=== PATIENT | female | born 1985 | race African-American/Black ===

== ENCOUNTER 2018-06-17 09:00 | Observation (INO) | payer MEDICAID ==
[~2018-06-17] VITALS: Ht 162.6 cm; Wt 89.4 kg
[~2018-06-17 09:00] MED LIST: ALBUTEROL
[2018-06-17] MEDS ORDERED: LACTATED RINGERS 1,000 ML IV SCH (10:00)
[2018-06-17] MEDS ORDERED: ONDANSETRON HCL 4MG/2ML INJ IV NR (10:00)
== END 2018-06-17 11:00 | disposition home or self-care (01) ==
LOC: 8 EST LDRP 09:00
PROVIDERS: ADMIT Obstetrics & Gynecology; ATTEND Obstetrics & Gynecology
DX: O62.9 Abnormality of forces of labor, unspecified (principal); O21.2 Late vomiting of pregnancy; Z3A.38 38 weeks gestation of pregnancy
CPT/HCPCS: 96374; 99281; G0378; J2405; 96360

== ENCOUNTER 2018-06-21 09:05 | Inpatient (IN) | payer MEDICAID ==
[~2018-06-21] VITALS: Ht 162.6 cm; Wt 92.1 kg
[2018-06-21] MEDS ORDERED: DEXT 5%/LACTATED RINGERS 1,000 ML IV SCH (10:00)
[2018-06-21] MEDS ORDERED: ONDANSETRON HCL 4MG/2ML INJ IV SCH (10:00)
[2018-06-21 10:29] LABS: BASOPHILS % 0.3 % (0.0-2.0); EOSINOPHILS % 0.2 % (0.0-5.0); HEMATOCRIT. 31.1 % (36.0-48.0); LYMPHOCYTES % 8.2 % (20.0-50.0); MEAN CORPUSCULAR HEMOGLOBIN 29.5 pg (28.0-32.0); MEAN CORPUSCULAR VOLUME 91.6 fL (81.0-99.0); MEAN PLATELET VOLUME 10.7 fl (7.4-10.4); MONOCYTES % 5.3 % (2.0-8.0); PLATELET 212 x1000/uL (130-400); RED CELL DISTRIBUTION WIDTH 12.7 % (11.6-14.6)
[2018-06-21] MEDS ORDERED: DEXT 5%/LR + PITOCIN 20UNITS/L 1,000 ML IV SCH ×2 (10:42→23:20)
[2018-06-21] MEDS ORDERED: CARBOPROST TROMETHAMINE 250 MCG/ML AMPUL IM PRN (10:45)
[2018-06-21] MEDS ORDERED: LIDOCAINE HCL 1% 20ML VIAL (Pyxis) INJ INFIL SCH (10:45)
[2018-06-21] MEDS ORDERED: BUTORPHANOL TARTRATE 2 MG/ML VIAL IV PRN (10:45)
[2018-06-21] MEDS ORDERED: NALOXONE HCL 0.4 MG/ML 1ML VIAL IM PRN (10:45)
[2018-06-21] MEDS ORDERED: METHYLERGONOVINE MALEATE 0.2 MG/ML IM PRN (10:45)
[2018-06-21] MEDS ORDERED: MISOPROSTOL 100MCG TABLET VG SCH (11:00)
[2018-06-21 12:26] LABS: *COCAINE SCREEN URINE NEGATIVE (NEGATIVE)
[2018-06-21 12:30] LABS: *AMPHETAMINES SCREEN URINE NEGATIVE (NEGATIVE); *BARBITURATES SCREEN URINE NEGATIVE (NEGATIVE); *BENZODIAZEPINES SCREEN URINE NEGATIVE (NEGATIVE); METHADONE URINE SCREEN NEGATIVE (NEGATIVE); OPIATES URINE SCREEN NEGATIVE (NEGATIVE); PHENCYCLIDINE URINE SCREEN NEGATIVE (NEGATIVE)
[2018-06-21 12:31] LABS: CANNABINOID URINE SCREEN NEGATIVE (NEGATIVE)
[2018-06-21 12:32] LABS: PARTIAL THROMBOPLASTIN TIME 27.4 sec (23.4-31.0); PROTHROMBIN TIME 9.7 sec (9.1-11.1)
[2018-06-21 12:44] LABS: CLARITY URINE CLEAR (CLEAR); COLOR URINE YELLOW (YELLOW); KETONES URINE NEGATIVE (NEGATIVE); LEUKOCYTE ESTERASE URINE 1+ (NEGATIVE); NITRITE URINE NEGATIVE (NEGATIVE); OCCULT BLOOD URINE NEGATIVE (NEGATIVE); PH URINE 8.5 (4.5-8.0); PROTEIN URINE NEGATIVE (NEGATIVE); SPECIFIC GRAVITY URINE 1.019 (1.005-1.030); UROBILINOGEN URINE 0.2 E.U./dL (0.2-1.0)
[2018-06-21 14:16] LABS: HEPATITIS B SURFACE ANTIGEN NEGATIVE
[2018-06-21] MEDS: LACTATED RINGERS 1,000 ML IV SCH ×2 (14:39→17:33)
[2018-06-21] MEDS ORDERED: ROPIVACAINE HCL/PF 0.2% (2MG/ML) EPI 200ML EPI NR (17:00)
[2018-06-21] MEDS ORDERED: FENTANYL CITRATE/PF 50MCG/ML 2ML VIAL ONE ×2 (17:08→21:07)
[2018-06-21] MEDS ORDERED: BUPIVACAINE HCL/PF 0.25% (2.5MG/ML) 10ML ONE ×3 (17:08→21:23)
[2018-06-21] MEDS ORDERED: SODIUM CHLORIDE 0.9% 10ML VIAL ONE ×3 (17:09→21:23)
[2018-06-21] MEDS ORDERED: ONDANSETRON HCL 4MG/2ML INJ IV NR (20:00)
[2018-06-21] MEDS ORDERED: IBUPROFEN 400MG TABLET PO PRN (23:30)
[2018-06-21] MEDS ORDERED: ACETAMINOPHEN WITH CODEINE 300/30MG TABLET PO PRN (23:30)
[2018-06-21] MEDS ORDERED: RHO(D) IMMUNE GLOBULIN 300 MCG/SYR IM PRN (23:30)
[2018-06-22] VITALS (7 sets, daily range): BP systolic 125–138; BP diastolic 71–85
[2018-06-22] MEDS: IBUPROFEN 800MG TABLET PO PRN ×2 (01:02→19:27)
[2018-06-22 07:01] LABS: BASOPHILS % 0.3 % (0.0-2.0); EOSINOPHILS % 0.2 % (0.0-5.0); HEMOGLOBIN. 10.4 g/dL (12.0-16.0); LYMPHOCYTES % 10.2 % (20.0-50.0); MEAN CORPUSCULAR HEMOGLOBIN 29.9 pg (28.0-32.0); MEAN PLATELET VOLUME 11.3 fl (7.4-10.4); MONOCYTES % 9.8 % (2.0-8.0); NEUTROPHILS % 79.5 % (40.0-76.0); PLATELET 208 x1000/uL (130-400); RED BLOOD CELL COUNT 3.48 mill/uL (4.2-5.4); RED CELL DISTRIBUTION WIDTH 12.6 % (11.6-14.6)
[2018-06-23 06:00] VITALS: BP 128/85
[2018-06-23 08:20] VITALS: BP 142/89
[2018-06-23 08:54] VITALS: BP 128/85
[2018-06-23] MEDS: IBUPROFEN 800MG TABLET PO PRN (08:54)
== END 2018-06-23 13:15 | disposition home or self-care (01) | DRG 560 ==
LOC: OBSVTOIN 09:05 → 8 EST LDRP 09:05 → 8EST 06-22 01:53
PROVIDERS: ADMIT Obstetrics & Gynecology; ATTEND Obstetrics & Gynecology
PROC: 10E0XZZ Delivery of Products of Conception, External Approach (ICD-10-PCS; principal; 2018-06-21)
PROC: 3E0R3BZ Introduction of Anesthetic Agent into Spinal Canal, Percutaneous Approach (ICD-10-PCS; 2018-06-21)
PROC: 00HU33Z Insertion of Infusion Device into Spinal Canal, Percutaneous Approach (ICD-10-PCS; 2018-06-21)
DX: O76 Abnormality in fetal heart rate and rhythm complicating labor and delivery (principal); D64.9 Anemia, unspecified; O90.81 Anemia of the puerperium; J45.909 Unspecified asthma, uncomplicated; O99.52 Diseases of the respiratory system complicating childbirth; Z37.0 Single live birth; Z3A.39 39 weeks gestation of pregnancy; Z82.49 Family history of ischemic heart disease and other diseases of the circulatory system; Z83.3 Family history of diabetes mellitus
CPT/HCPCS: 36415; 76805; 80051; 80305; 86592; 86703; 86762; 86850; 86900; 87340; 99281; G0378; J2310; J2405; J2590; J2795; J3010; J3490; J7120; J7121; A4315

== ENCOUNTER 2019-06-22 12:33 | Inpatient (IN) | payer MEDICAID ==
[~2019-06-22] VITALS: Ht 160 cm; Wt 86.2 kg
[2019-06-22 14:32] LABS: BASOPHILS % 0.9 % (0.0-2.0); CHLORIDE 105 mEq/L (98-107); EOSINOPHILS % 4.5 % (0.0-5.0); HEMATOCRIT. 37.2 % (36.0-48.0); HEMOGLOBIN. 12.5 g/dL (12.0-16.0); LYMPHOCYTES % 43.1 % (20.0-50.0); MEAN CORPUSCULAR HEMOGLOBIN 30.4 pg (28.0-32.0); MEAN CORPUSCULAR VOLUME 90.8 fL (81.0-99.0); MEAN PLATELET VOLUME 9.9 fl (7.4-10.4); MONOCYTES % 8.6 % (2.0-8.0); NEUTROPHILS % 42.9 % (40.0-76.0); PLATELET 200 x1000/uL (130-400)
[2019-06-22 14:44] LABS: B-HCG QUANTITATIVE 42 mIU/mL (<3)
[2019-06-22] MEDS ORDERED: SODIUM CHLORIDE 0.9% 1,000 ML IV ONE (17:24)
[2019-06-22] MEDS ORDERED: PROPOFOL 200MG/20ML VIAL IV ONE (17:51)
[2019-06-22] MEDS ORDERED: LIDOCAINE HCL/PF 1% 10 MG/ML 5ML VIAL ONE (17:51)
[2019-06-22] MEDS ORDERED: ROCURONIUM BROMIDE 10MG/ML VIAL 5ML IV ONE (17:52)
[2019-06-22] MEDS ORDERED: MIDAZOLAM HCL 2 MG/2 ML VIAL ONE (17:52)
[2019-06-22] MEDS ORDERED: FENTANYL CITRATE/PF 50MCG/ML 2ML VIAL ONE (17:52)
[2019-06-22] MEDS ORDERED: SUCCINYLCHOLINE CHLORIDE 200MG/10ML IV ONE ×2 (17:53→18:41)
[2019-06-22] MEDS ORDERED: BUPIVACAINE HCL 0.5% (5MG/ML) 50ML ONE (18:24)
[2019-06-22] MEDS ORDERED: LIDOCAINE HCL 1% 20ML VIAL (Pyxis) INJ ONE (18:24)
[2019-06-22] MEDS ORDERED: ONDANSETRON HCL 4MG/2ML INJ IV PRN (18:30)
[2019-06-22] MEDS ORDERED: HYDROMORPHONE HCL/PF 2MG/ML CPJ IV PRN (18:30)
[2019-06-22] MEDS ORDERED: CEFAZOLIN SODIUM 1000MG/VIAL ONE (18:42)
[2019-06-22] MEDS ORDERED: DEXAMETHASONE 4MG/ML 1ML VIAL ONE (18:46)
[2019-06-22] MEDS ORDERED: METOCLOPRAMIDE HCL 10MG/2ML VIAL ONE (18:53)
[2019-06-22] MEDS ORDERED: KETOROLAC 30MG/ML VIAL ONE (19:29)
[2019-06-22] MEDS ORDERED: NEOSTIGMINE METHYLSULFATE 1MG/ML 10 ML VIAL ONE (19:35)
[2019-06-22] MEDS ORDERED: GLYCOPYRROLATE 0.2 MG/ML 2ML VIAL ONE (19:36)
[2019-06-22] MEDS ORDERED: MEPERIDINE HCL/PF 25MG/ML CPJ ONE (20:06)
[2019-06-22] MEDS ORDERED: MEPERIDINE HCL/PF 25MG/ML CPJ IV PRN (20:15)
[2019-06-22] MEDS: FENTANYL CITRATE/PF 50MCG/ML 2ML VIAL IV PRN ×2 (20:33→20:42)
[2019-06-22] MEDS ORDERED: RHO(D) IMMUNE GLOBULIN 300 MCG/SYR IM ONE ×2 (20:45)
[2019-06-22 22:15] VITALS: BP 144/91
[2019-06-22] MEDS: KETOROLAC 30MG/ML VIAL IV PRN (22:42)
[2019-06-22] MEDS ORDERED: DIPHENHYDRAMINE 50MG/ML VIAL IV PRN (23:00)
[2019-06-22] MEDS: ONDANSETRON HCL 4MG/2ML INJ IV PRN (23:05)
[2019-06-23] VITALS: BP 117/68
[2019-06-23] MEDS: IBUPROFEN 800MG TABLET PO PRN ×3 (01:22→20:29)
[2019-06-23 04:00] VITALS: BP 119/66
[2019-06-23] MEDS: KETOROLAC 30MG/ML VIAL IV PRN ×3 (04:44→17:48)
[2019-06-23 08:00] VITALS: BP 96/60
[2019-06-23] MEDS: ONDANSETRON HCL 4MG/2ML INJ IV PRN ×2 (11:02→20:25)
[2019-06-23 11:13] LABS: BASOPHILS % 0.1 % (0.0-2.0); HEMATOCRIT. 29.9 % (36.0-48.0); HEMOGLOBIN. 9.9 g/dL (12.0-16.0); LYMPHOCYTES % 13.8 % (20.0-50.0); MEAN CORPUSCULAR HEMOGLOBIN 30.2 pg (28.0-32.0); MEAN CORPUSCULAR VOLUME 90.9 fL (81.0-99.0); MEAN PLATELET VOLUME 9.9 fl (7.4-10.4); NEUTROPHILS % 79.1 % (40.0-76.0); PLATELET 203 x1000/uL (130-400); RED BLOOD CELL COUNT 3.28 mill/uL (4.2-5.4); RED CELL DISTRIBUTION WIDTH 12.5 % (11.6-14.6)
[2019-06-23 11:22] LABS: CHLORIDE 105 mEq/L (98-107)
[2019-06-23 12:00] VITALS: BP 117/73
[2019-06-23 16:00] VITALS: BP 104/52
[2019-06-23 20:00] VITALS: BP 104/52
[2019-06-24] VITALS (7 sets, daily range): BP systolic 93–108; BP diastolic 39–63
[2019-06-24] MEDS: KETOROLAC 30MG/ML VIAL IV PRN ×3 (00:46→20:27)
[2019-06-24] MEDS: IBUPROFEN 800MG TABLET PO PRN ×2 (04:53→12:58)
[2019-06-24] MEDS: ONDANSETRON HCL 4MG/2ML INJ IV PRN (04:53)
[2019-06-25] VITALS: BP 99/56
[2019-06-25 04:00] VITALS: BP 104/65
[2019-06-25] MEDS: KETOROLAC 30MG/ML VIAL IV PRN (07:55)
[2019-06-25 08:00] VITALS: BP 114/61
[2019-06-25 09:08] VITALS: BP 114/61
== END 2019-06-25 09:48 | disposition home or self-care (01) | DRG 545 ==
LOC: ER 12:33 → 6EST 17:06 → ENRESERV 19:49 → CANBEDREQ 21:56
PROVIDERS: ADMIT Obstetrics & Gynecology; ATTEND Obstetrics & Gynecology
PROC: 0UB50ZZ Excision of Right Fallopian Tube, Open Approach (ICD-10-PCS; principal; 2019-06-22)
PROC: 10T20ZZ Resection of Products of Conception, Ectopic, Open Approach (ICD-10-PCS; 2019-06-22)
PROC: 0UB10ZZ Excision of Left Ovary, Open Approach (ICD-10-PCS; 2019-06-22)
DX: O00.90 Unspecified ectopic pregnancy without intrauterine pregnancy (principal); K66.1 Hemoperitoneum; D64.9 Anemia, unspecified; N83.291 Other ovarian cyst, right side; N83.292 Other ovarian cyst, left side; O99.511 Diseases of the respiratory system complicating pregnancy, first trimester; O26.891 Other specified pregnancy related conditions, first trimester; O34.81 Maternal care for other abnormalities of pelvic organs, first trimester; N83.201 Unspecified ovarian cyst, right side; Z82.49 Family history of ischemic heart disease and other diseases of the circulatory system; Z83.3 Family history of diabetes mellitus; Z88.0 Allergy status to penicillin; Z91.040 Latex allergy status; Z3A.09 9 weeks gestation of pregnancy
CPT/HCPCS: 36415; 76801; 80048; 80053; 84702; 85025; 86850; 86900; 88305; 88307; 96374; 99291; J0330; J0690; J1100; J1200; J1885; J2175; J2250; J2405; J2704; J2710; J2765; J3010; J3490; J7030

== ENCOUNTER 2020-02-20 13:15 | Emergency (ER) | payer MEDICAID ==
[~2020-02-20] VITALS: Ht 162.6 cm; Wt 92.0 kg
[2020-02-20 15:00] VITALS: BP 116/70
[2020-02-20 15:12] LABS: BASOPHILS % 0.6 % (0.0-2.0); EOSINOPHILS % 3.3 % (0.0-5.0); HEMATOCRIT. 35.5 % (36.0-48.0); HEMOGLOBIN. 11.8 g/dL (12.0-16.0); LYMPHOCYTES % 35.2 % (20.0-50.0); MEAN CORPUSCULAR HEMOGLOBIN 30.2 pg (28.0-32.0); MEAN CORPUSCULAR VOLUME 91.1 fL (81.0-99.0); MEAN PLATELET VOLUME 10.4 fl (7.4-10.4); MONOCYTES % 4.5 % (2.0-8.0); NEUTROPHILS % 56.4 % (40.0-76.0); PLATELET 196 x1000/uL (130-400); RED CELL DISTRIBUTION WIDTH 13.6 % (11.6-14.6)
[2020-02-20 15:19] LABS: CHLORIDE 105 mEq/L (98-107)
[2020-02-20 15:31] LABS: B-HCG QUANTITATIVE 903 mIU/mL (<3)
== END 2020-02-20 18:34 | disposition home or self-care (01) ==
LOC: ER 13:15
DX: O20.0 Threatened abortion (principal); J45.909 Unspecified asthma, uncomplicated; Z88.0 Allergy status to penicillin; Z98.890 Other specified postprocedural states; Z91.040 Latex allergy status; Z3A.00 Weeks of gestation of pregnancy not specified
CPT/HCPCS: 36415; 76830; 76856; 80053; 84702; 85025; 86850; 86900; 93005; 99285

== ENCOUNTER 2020-02-27 09:15 | Emergency (ER) | payer MEDICAID ==
[~2020-02-27] VITALS: Ht 162.6 cm; Wt 91.0 kg
[2020-02-27 10:07] LABS: BASOPHILS % 0.7 % (0.0-2.0); EOSINOPHILS % 3.3 % (0.0-5.0); HEMOGLOBIN. 12.4 g/dL (12.0-16.0); LYMPHOCYTES % 30.7 % (20.0-50.0); MEAN CORPUSCULAR HEMOGLOBIN 30.4 pg (28.0-32.0); MEAN PLATELET VOLUME 10.2 fl (7.4-10.4); MONOCYTES % 5.8 % (2.0-8.0); NEUTROPHILS % 59.5 % (40.0-76.0); PLATELET 197 x1000/uL (130-400); RED BLOOD CELL COUNT 4.07 mill/uL (4.2-5.4); RED CELL DISTRIBUTION WIDTH 13.1 % (11.6-14.6)
[2020-02-27 10:08] LABS: CLARITY URINE CLEAR (CLEAR); COLOR URINE YELLOW (YELLOW); KETONES URINE NEGATIVE (NEGATIVE); LEUKOCYTE ESTERASE URINE NEGATIVE (NEGATIVE); NITRITE URINE NEGATIVE (NEGATIVE); OCCULT BLOOD URINE 2+ (NEGATIVE); PROTEIN URINE NEGATIVE (NEGATIVE); SPECIFIC GRAVITY URINE 1.019 (1.005-1.030); UROBILINOGEN URINE 0.2 E.U./dL (0.2-1.0)
[2020-02-27 10:14] LABS: CHLORIDE 105 mEq/L (98-107)
[2020-02-27 10:24] LABS: B-HCG QUANTITATIVE 672 mIU/mL (<3)
[2020-02-27] MEDS ORDERED: METHOTREXATE SODIUM/PF 50 MG/2 ML VIAL IM SCH (15:30)
[2020-02-27 16:55] VITALS: BP 132/85
== END 2020-02-27 16:55 | disposition home or self-care (01) ==
LOC: ER 09:15
DX: O00.90 Unspecified ectopic pregnancy without intrauterine pregnancy (principal); O46.91 Antepartum hemorrhage, unspecified, first trimester; O26.891 Other specified pregnancy related conditions, first trimester; R10.9 Unspecified abdominal pain; O99.511 Diseases of the respiratory system complicating pregnancy, first trimester; J45.909 Unspecified asthma, uncomplicated; Z88.0 Allergy status to penicillin; Z91.040 Latex allergy status
CPT/HCPCS: 36415; 76801; 76817; 80053; 81003; 81025; 84702; 85025; 86850; 86900; 86901; 96372; 99284; J9260